=== PATIENT | female | born 2000 | race Two or more races ===

== ENCOUNTER 2023-04-19 15:04 | Emergency (ER) | payer OTHER ==
[~2023-04-19] VITALS: Ht 162.6 cm; Wt 99.0 kg
[2023-04-19 15:11] VITALS: O2SAT 100
[2023-04-19] MEDS: LIDOCAINE HCL 1% 20ML VIAL (Pyxis) INJ INFIL ONE (15:30)
[2023-04-19] MEDS: BACITRACIN ZINC OINT UDPKT TOP ONE (15:30)
[2023-04-19 16:00] VITALS: BP 111/59; PULSE 97; RESP 16; TEMP 97.8
== END 2023-04-19 16:56 | disposition home or self-care (01) ==
LOC: ER 15:04
DX: M79.5 Residual foreign body in soft tissue (principal)
CPT/HCPCS: 99284; 74018; J3490